=== PATIENT | female | born 1995 | race Hispanic/Latino ===

== ENCOUNTER 2019-03-16 04:32 | Emergency (ER) | payer SELFPAY ==
[~2019-03-16] VITALS: Ht 149.9 cm; Wt 59.0 kg
--- OUTSIDE RECORDS SUMMARY | 2019-03-16 04:34 | XMS REPORT ---
Author Author Vera López Organization [employer] Address Unknown Phone Unavailable Care Team Providers Care Coppersmith Helper Name Role Phone Vera López CP Unavailable Allergies, Adverse Reactions, Alerts Substance Reaction Event Type Vancomycin HCl Info Not Available Drug Allergy Iodine Info Not Available Drug Allergy Encounters Encounter Location Date Unknown [facility] Aug 11, 2016 Problems Problem Type Condition ICD-9 Code Onset Dates Condition Status Problem Anxiety F41.9 Active Problem Acute upper respiratory infection J06.9 Active Problem Obesity E66.9 Active Problem Migraine G43.909 Active Assessment Annual physical exam Z00.00 Active Medications Medication Code System Code Instructions Start Date End Date Status Dosage Phentermine HCl [facility] [address]-10 37.5 MG Orally Once a day Active 1 tablet Social History Social History Element Qualifiers Date Reported Tobacco Use: . Are you a: never smoker Aug 11, 2016 Use of recreational / street drugs? . Answer: No Aug 11, 2016 Marital Status: . Single Aug 11, 2016 Caffeine intake? . Status: Yes, What type: Energy Drinks Aug 11, 2016 Do you drink alcohol? . Status: Yes, How Often? Socially Aug 11, 2016 Travel outside [place]: . no Aug 11, 2016 Family history Qualifier Description Comment Date Reported Maternal Grandmother Comment not available Aug 11, 2016 Paternal Grandmother Comment not available Aug 11, 2016 Siblings Comment not available Aug 11, 2016 Maternal Grandfather Comment not available Aug 11, 2016 Children Comment not available Aug 11, 2016 Father alive Comment not available Aug 11, 2016 Paternal Grandfather Comment not available Aug 11, 2016 Mother alive Comment not available Aug 11, 2016 Other: Comment not available Aug 11, 2016 Vital Signs Date/Time: Aug 11, 2016 Weight 138.9 lbs Height 59 in Temperature 99.2 F Cardiac Monitoring Heart Rate 83 /min Blood Pressure Diastolic 65 mm Hg Blood Pressure Systolic 110 mm Hg Summary Purpose [employer] Submission
--- OUTSIDE RECORDS SUMMARY | 2019-03-16 04:34 | XMS REPORT ---
Author Author Vera López Organization [employer] Address Unknown Phone Unavailable Care Team Providers Care Custodian Athletic Equipment Name Role Phone Vera López CP Unavailable Allergies, Adverse Reactions, Alerts Substance Reaction Event Type Vancomycin HCl Info Not Available Drug Allergy Iodine Info Not Available Drug Allergy Problems Problem Type Condition Code Onset Dates Condition Status Problem Anxiety F41.9 Active Problem Acute upper respiratory infection J06.9 Active Problem Obesity E66.9 Active Problem Migraine G43.909 Active Assessment Trigger ring finger of right hand M65.341 Active Medications Medication Code System Code Instructions Start Date End Date Status Dosage Phentermine HCl [facility] [address]-23 37.5 MG Orally Once a day Active 1 tablet Vital Signs Date/Time: January 21, 2017 BMI 27.26 Index Weight 135 lbs Height 59. in Cardiac Monitoring Heart Rate 85 /min Blood Pressure Diastolic 65 mm Hg Blood Pressure Systolic 111 mm Hg Results No Known Results Summary Purpose [employer] Submission
--- OUTSIDE RECORDS SUMMARY | 2019-03-16 04:34 | XMS REPORT ---
Author Author Vera López Organization [employer] Address Unknown Phone Unavailable Care Team Providers Care Pipeline Systems Operator Name Role Phone Vera López CP Unavailable Allergies No Known Allergies Problems Problem Type Condition Code Onset Dates Condition Status Problem Anxiety F41.9 Active Problem Migraine G43.909 Active Problem Obesity E66.9 Active Problem Acute upper respiratory infection J06.9 Active Medications No Known Medications Results No Known Results Summary Purpose [employer] Submission
--- OUTSIDE RECORDS SUMMARY | 2019-03-16 04:34 | XMS REPORT | Continuity of Care Document ---
Author Author [employer] Address Unknown Phone Unavailable Care Team Providers Care Inweaver Name Role Phone [employer] Unavailable Unavailable Problems Problem Status Onset Date Classification Date Reported Comments Source Anxiety Active Problem 07/15/2018 [id number] Migraine Active Problem 07/15/2018 2.16.840.1.223822.4.391.11.23984 Obesity Active Problem 07/15/2018 2.16.840.1.049533.4.391.11.90158 Acute upper respiratory infection Active Problem 07/15/2018 2.16.840.1.230206.4.391.11.48067 Trigger ring finger of right hand Active Diagnosis 02/05/2017 2.16840.1.357864.4.391.11.87078 Seasonal allergic rhinitis, unspecified trigger Active Diagnosis 12/30/2017 2.16.840.1.898474.4.391.11.44768 Medications Medication Details Route Status Patient Instructions Ordering Provider Order Date Source Phentermine HCl 1 tablet Orally Active 37.5 MG Orally Once a day Rene 2.16840.1.611241.4.391.11.30764 Allergies, Adverse Reactions, Alerts Substance Category Reaction Severity Reaction type Status Date Reported Comments Source Vancomycin HCl Adverse Reaction Info Not Available Adverse Reaction Active 12/06/2017 2.16.840.1.329827.4.391.11.73924 Iodine Adverse Reaction Info Not Available Adverse Reaction Active 12/06/2017 2.16840.1.782338.4.391.11.07407 Immunizations No Data Provided for This Section Results No Data Provided for This Section Pathology Reports No Data Provided for This Section Diagnostic Reports No Data Provided for This Section Consultation Notes No Data Provided for This Section Discharge Summaries No Data Provided for This Section History and Physicals No Data Provided for This Section Vital Signs Vital Sign Value Date Comments Source Weight 140.3 12/06/2017 2.16.840.1.297073.4.391.11.03821 Height 59 12/06/2017 2.16.840.1.809908.4.391.11.44474 Temperature Oral (F) 98.5 F 12/06/2017 2.16.840.1.569981.4.391.11.12702 Heart Rate 85 12/06/2017 2.16.840.1.560226.4.391.11.38329 Diastolic (mm Hg) 48 12/06/2017 2.16.840.1.798818.4.391.11.70761 Systolic (mm Hg) 102 12/06/2017 2.16.840.1.960786.4.391.11.98292 Weight 135 01/21/2017 2.16.840.1.441880.4.391.11.96596 Height 59 01/21/2017 2.16.840.1.686002.4.391.11.68817 Heart Rate 85 01/21/2017 2.16.840.1.791587.4.391.11.29728 Diastolic (mm Hg) 65 01/21/2017 2.16.840.1.417802.4.391.11.84304 Systolic (mm Hg) 111 01/21/2017 2.16.840.1.259982.4.391.11.13819 Weight 138.9 08/11/2016 2.16.840.1.844257.4.391.11.73107 Height 59 08/11/2016 2.16.840.1.081902.4.391.11.05340 Temperature Oral (F) 99.2 F 08/11/2016 2.16.840.1.486438.4.391.11.51834 Heart Rate 83 08/11/2016 2.16.840.1.988616.4.391.11.64640 Diastolic (mm Hg) 65 08/11/2016 2.16.840.1.392554.4.391.11.84980 Systolic (mm Hg) 110 08/11/2016 2.16.840.1.589496.4.391.11.25350 Encounters Location Location Details Encounter Type Encounter Number Reason For Visit Attending Provider ADM Date DC Date Status Source [facility] Unknown [id number] 08/11/2016 08/11/2016 2.16.840.1.747937.4.391.11.43244 Procedures No Data Provided for This Section Assessment and Plan No Data Provided for This Section Plan of Care No Data Provided for This Section Social History Social History Date Source Social History ElementQualifiersDate Reported Tobacco Use: . Are you a: [...] outside [place]: . no Aug 11, 2016 08/11/2016 2.16.840.1.314005.4.391.11.52172 Family History Value Date Source QualifierDescriptionCommentDate Reported Maternal Grandmother Comment not available Aug [...] Other: Comment not available Aug 11, 2016 08/28/2016 2.16.840.1.819568.4.391.11.26020 Advance Directives No Data Provided for This Section Functional Status No Data Provided for This Section
--- OUTSIDE RECORDS SUMMARY | 2019-03-16 04:34 | XMS REPORT ---
Author Author Vera López Organization [employer] Address Unknown Phone Unavailable Care Team Providers Care Corporate Risk Analyst Name Role Phone Vera López CP Unavailable Allergies, Adverse Reactions, Alerts Substance Reaction Event Type Vancomycin HCl Info Not Available Drug Allergy Iodine Info Not Available Drug Allergy Problems Problem Type Condition Code Onset Dates Condition Status Problem Anxiety F41.9 Active Problem Migraine G43.909 Active Problem Obesity E66.9 Active Assessment Seasonal allergic rhinitis, unspecified trigger J30.2 Active Problem Acute upper respiratory infection J06.9 Active Assessment Annual physical exam Z00.00 Active Medications No Known Medications Vital Signs Date/Time: December 06, 2017 BMI 28.33 Index Weight 140.3 lbs Height 59 in Temperature 98.5 F Cardiac Monitoring Heart Rate 85 /min Blood Pressure Diastolic 48 mm Hg Blood Pressure Systolic 102 mm Hg Results Name Result Date Reference Range Unit Abnormality Flag COMPREHENSIVE METABOLIC PANEL ----CALCIUM 9.5 47967435 8.6-10.2 mg/dL N ----CARBON DIOXIDE 25 08071405 20-31 mmol/L N ----ALT 10 93748357 6-29 U/L N ----CREATININE 0.70 05950201 0.50-1.10 mg/dL N ----AST 14 13582288 10-30 U/L N ----eGFR NON-AFR. [place] 122 02730645 > OR=60 mL/min/1.73m2 N ----ALKALINE PHOSPHATASE 97 10878355 33-115 U/L N ----eGFR 142 20171206 > OR=60 mL/min/1.73m2 N ----BILIRUBIN, TOTAL 0.5 61319134 0.2-1.2 mg/dL N ----BUN/CREATININE RATIO NOT APPLICABLE 37647946 6-22 (calc) ----ALBUMIN/GLOBULIN RATIO 1.6 46627140 1.0-2.5 (calc) N ----SODIUM 145 68123750 135-146 mmol/L N ----GLOBULIN 2.8 29357801 1.9-3.7 g/dL (calc) N ----POTASSIUM 3.7 68505864 3.5-5.3 mmol/L N ----GLUCOSE 129 50298972 65-99 mg/dL H ----CHLORIDE 105 50828460 98-110 mmol/L N ----ALBUMIN 4.5 84091759 3.6-5.1 g/dL N ----UREA NITROGEN (BUN) 14 17543869 7-25 mg/dL N ----PROTEIN, TOTAL 7.3 37101707 6.1-8.1 g/dL N CBC (INCLUDES DIFF/PLT) ----ABSOLUTE EOSINOPHILS 178 69983494 15-500 cells/uL N ----MCV 93.9 51477857 80.0-100.0 fL N ----HEMATOCRIT 39.7 91389906 35.0-45.0 % N ----ABSOLUTE MONOCYTES 498 97511331 200-950 cells/uL N ----MCHC 34.3 16088107 32.0-36.0 g/dL N ----ABSOLUTE LYMPHOCYTES 2465 10529770 850-3900 cells/uL N ----MCH 32.2 56881796 27.0-33.0 pg N ----ABSOLUTE NEUTROPHILS 5723 94584541 6467-1350 cells/uL N ----MONOCYTES 5.6 49550558 % N ----WHITE BLOOD CELL COUNT 8.9 62338430 3.8-10.8 Thousand/uL N ----LYMPHOCYTES 27.7 88996658 % N ----NEUTROPHILS 64.3 15556751 % N ----HEMOGLOBIN 13.6 46874350 11.7-15.5 g/dL N ----ABSOLUTE BASOPHILS 36 81423694 0-200 cells/uL N ----RED BLOOD CELL COUNT 4.23 99869951 3.80-5.10 Million/uL N ----BASOPHILS 0.4 96948810 % N ----MPV 11.2 42057825 7.5-12.5 fL N ----EOSINOPHILS 2.0 51013379 % N ----RDW 11.5 77458761 11.0-15.0 % N ----PLATELET COUNT 226 20171206 140-400 Thousand/uL N VITAMIN B12 ----VITAMIN B12 313 20171206 200-1100 pg/mL N LIPID PANEL ----NON HDL CHOLESTEROL 95 20546833 <130 mg/dL (calc) N ----LDL-CHOLESTEROL 76 99025756 mg/dL (calc) N ----CHOL/HDLC RATIO 2.7 20171206 <5.0 (calc) N ----HDL CHOLESTEROL 57 20171206 >50 mg/dL N ----TRIGLYCERIDES 104 20171206 <150 mg/dL N ----CHOLESTEROL, TOTAL 152 20171206 <200 mg/dL N VITAMIN D, 25-HYDROXY, LC/MS/MS ----VITAMIN D,25-OH,TOTAL,IA 24 20171206 30-100 ng/mL L HEMOGLOBIN A1c ----HEMOGLOBIN A1c 4.7 20171206 <5.7 % of total Hgb N TSH ----TSH 4.15 06021509 mIU/L N Summary Purpose eClinicalWorks Submission
--- OUTSIDE RECORDS SUMMARY | 2019-03-16 04:34 | XMS REPORT ---
Author Author [facility] Address Unknown Phone Unavailable Care Team Providers Care Shellfish Dredge Operator Name Role Phone Unavailable Unavailable Payers Payer Name Policy Type Policy Number Effective Date Expiration Date Problems This patient has no known problems. Allergies, Adverse Reactions, Alerts Allergy Name Allergy Type Status Severity Reaction(s) Onset Date Inactive Date Treating Clinician Comments Iodinated Contrast- Oral and IV Dye DA Active MO 2017-06-22 00:00:00 vancomycin DA Active MO 2017-06-21 00:00:00 Medications This patient has no known medications. Results Test Description Test Time Test Comments Text Results Atomic Results Result Comments - XR HAND 3 + V BI 2018-12-26 18:03:00 FAX: Gary Baker MD [phone] [place]: St: REG Name: JC DIAS [facility] : 1995 Age/S: 23/F [address] [place] [address] Unit #: [id number] Loc: [place] [address] Phys: Gary Martin MD Acct: [id number] Dis Date: Status: REG CLI PHONE #: [phone] Exam Date: 12/26/2018 1753 FAX #: [phone] Reason: PAIN IN LEFT AND RIGHT HAND EXAMS: CPT CODE: [id number] XR HAND 3 + [place] [address]7949 Three-view bilateral hands. INDICATION: Bilateral generalized hand pain. History of left hand arthritis. FINDINGS: No prior for c omparison. Joint spaces are maintained in both hands. No degenerative spurring or erosions identified bilaterally. No acute fracture, dislocation, or osseous destruction bilaterally. IMPRESSION: Normal exam. SL: [id number] at 1803 Reported and signed by: Lei Barr M.D. CC: Gary Martin MD Technologist: RT Sandrine(R) Trnscrd Date/Time/By: 12/26/2018 (902) : By: [email or web address] Orig Print D/T: S: 12/26/2018 (394) PAGE 1 Signed Report
[2019-03-16] MEDS ORDERED: ONDANSETRON HCL INJ 2MG/ML 2ML 2 MG/ML VIAL IV STA (04:39)
[2019-03-16] MEDS ORDERED: KETOROLAC TROMETHAMINE 30 MG/ML VIAL IV STA (04:39)
[2019-03-16] MEDS ORDERED: ONDANSETRON HCL INJ 2MG/ML 2ML 2 MG/ML VIAL ONE (04:50)
[2019-03-16 05:05] LABS: BASOPHILS % 0.6 % (0.0-1.0); EOSINOPHILS # (AUTO) 0.1 (0.0-0.4); HEMATOCRIT 35.3 % (34.2-44.1); HEMOGLOBIN 11.8 g/dL (12.0-16.0); LYMPHOCYTES # (AUTO) 2.8 (1.0-3.2); LYMPHOCYTES % 38.4 % (18.0-39.1); MEAN CORPUSCULAR HGB CONC 33.4 g/dL (31-35); MEAN CORPUSCULAR VOLUME 95.7 fL (81-99); MONOCYTES # (AUTO) 0.5 (0.2-0.8); MONOCYTES % 6.8 % (4.4-11.3); NEUTROPHILS # (AUTO) 3.8 (2.1-6.9); NEUTROPHILS % 52.9 % (38.7-80.0); PLATELET COUNT 206 x10e3/uL (140-360); RED BLOOD COUNT 3.69 x10e6/uL (3.6-5.1); RED CELL DISTRIBUTION WIDTH 11.6 % (11.7-14.4)
[2019-03-16 05:17] LABS: BILIRUBIN,URINE NEGATIVE (NEGATIVE); CLARITY,URINE CLEAR (CLEAR); COLOR,URINE YELLOW (YELLOW); LEUKOCYTE ESTERASE ,URINE NEGATIVE (NEGATIVE); NITRITE,URINE NEGATIVE (NEGATIVE); PROTEIN,URINE DIPSTICK NEGATIVE (NEGATIVE); URINE UROBILINOGEN 0.2 mg/dL (0.2 - 1)
[2019-03-16 05:19] LABS: ALANINE AMINOTRANSFERASE 17 IU/L (0-55); ALBUMIN 3.8 g/dL (3.5-5.0); ALBUMIN/GLOBULIN RATIO 1.4 (0.8-2.0); ALKALINE PHOSPHATASE 86 IU/L (40-150); ANION GAP 13.7 mmol/L (8-16); BLOOD UREA NITROGEN 16 mg/dL (7-26); BUN/CREATININE RATIO 21 (6-25); CALCIUM 8.9 mg/dL (8.4-10.2); CARBON DIOXIDE 24 mmol/L (22-29); CHLORIDE 104 mmol/L (98-107); CREATININE, SERUM 0.75 mg/dL (0.57-1.11); EST GLOMERULAR FILTRATION RATE > 60 ML/MIN (60-); GLUCOSE 85 mg/dL (74-118); POTASSIUM 3.7 mmol/L (3.5-5.1); SODIUM 138 mmol/L (136-145)
[2019-03-16 05:30] LABS: KETONES,URINE 2+ (NEGATIVE)
[2019-03-16 05:31] LABS: BACTERIA,URINE RARE /HPF; EPITHELIAL CELLS,URINE FEW /LPF
--- NOTE | 2019-03-16 06:21 | Diagnostic Imaging Report ---
EXAM: CT Abdomen and Pelvis WITHOUT contrast INDICATION: RIGHT FLANK PAIN COMPARISON: None. TECHNIQUE: Abdomen and pelvis were scanned utilizing a multidetector helical scanner from the lung base to the pubic symphysis without administration of IV contrast. Absence of intravenous contrast decreases sensitivity for detection of focal lesions and vascular pathology. Coronal and sagittal reformations were obtained. Routine protocol was performed. IV CONTRAST: None ORAL CONTRAST: None COMPLICATIONS: None RADIATION DOSE: Total DLP: 206 mGy*cm Estimated effective dose: (DLP x 0.015 x size factor) mSv CTDIvol has been reviewed. It is below the limits set by the Radiation Protocol Committee (RPC). Dose modulation, iterative reconstruction, and/or weight based adjustment of the mA/kV was utilized to reduce the radiation dose to as low as reasonably achievable. FINDINGS: LINES and TUBES: None. LOWER THORAX: Unremarkable HEPATOBILIARY: No focal hepatic lesions. No biliary ductal dilation. GALLBLADDER: No radio-opaque stones or sludge. No wall thickening. SPLEEN: No splenomegaly. PANCREAS: No focal masses or ductal dilatation. ADRENALS: No adrenal nodules KIDNEYS/URETERS: No hydronephrosis. No cystic or solid mass lesions. A 3 mm nonobstructive calculus in the right renal inferior pole calyx. The right ureter slightly prominent. GI TRACT: No abnormal distention, wall thickening, or evidence of bowel obstruction. Appendix is normal. PELVIC ORGANS/BLADDER: Mild circumferential urinary bladder wall thickening. A 3 mm calculus in the left aspect of the bladder lumen.. LYMPH NODES: No lymphadenopathy. VESSELS: Unremarkable. PERITONEUM / RETROPERITONEUM: No free air or fluid. BONES: Transitional anatomy at L5-S1 with pseudoarthrosis of right L5 transverse process with right sacral aorta.. SOFT TISSUES: Umbilical jewelry. IMPRESSION: 1. A 3 mm calculus in the left aspect of the bladder lumen may represent a nephrolithiasis. There is also a 3 mm nonobstructive structure calculus in a right renal inferior pole calyx. The right ureter slightly prominent. 2. Mild circumferential urinary bladder wall thickening, correlate for cystitis. Signed by: Rogers Kumar DO on 03/16/2019 6:18 AM
== END 2019-03-16 06:41 | disposition home or self-care (01) ==
LOC: ER 04:32
DX: R10.31 Right lower quadrant pain (principal); R11.0 Nausea; N20.1 Calculus of ureter; N30.91 Cystitis, unspecified with hematuria
CPT/HCPCS: 36415; 74176; 80053; 81001; 84702; 85025; 96374; 99284; J1885; J2405